=== PATIENT | female | born 1955 | race Caucasian/White ===

== ENCOUNTER 2016-11-02 14:24 | Inpatient (IN) | payer BC ==
[~2016-11-02] VITALS: Ht 154.9 cm; Wt 84.7 kg
[2016-11-02] MEDS ORDERED: OMEP20TA PO (15:14)
[2016-11-02] MEDS ORDERED: [UNRECOGNIZED DRUG - CODE] PO (15:14)
[2016-11-02] MEDS ORDERED: LEVO137T2 PO (15:14)
[2016-11-02] MEDS ORDERED: SUCR1TAB PO (15:14)
[2016-11-02] MEDS ORDERED: MULT1TAB84 PO (15:14)
[2016-11-02] MEDS ORDERED: HYDR25TA5 PO (15:14)
[2016-11-02] MEDS ORDERED: VALA1TAB PO (15:14)
[2016-11-02] MEDS ORDERED: VESI10TA PO (15:14)
[2016-11-02] MEDS ORDERED: PYRI100T PO (15:14)
[2016-11-02] MEDS ORDERED: BIOT50005 PO (15:14)
[2016-11-02] MEDS ORDERED: E 101000 PO (15:14)
[2016-11-02] MEDS ORDERED: MONT10TA4 PO (15:14)
[2016-11-02] MEDS ORDERED: MOME1SPR2 EACH NARE (15:14)
[2016-11-02] MEDS ORDERED: CALTCHW4 CHEW (15:14)
[2016-11-02] MEDS ORDERED: FLAX1300 PO (15:14)
[2016-11-02] MEDS ORDERED: [UNRECOGNIZED DRUG - CODE] PO (15:14)
[2016-11-02] MEDS ORDERED: ASPI1TAB69 PO (15:14)
[2016-11-02] MEDS ORDERED: GLUC100017 PO (15:14)
[2016-11-02] MEDS ORDERED: IBUP800T23 PO (15:14)
[2016-11-02] MEDS ORDERED: LISI10TA3 PO (15:14)
[2016-11-03] MEDS ORDERED: SODIUM CHLORID 0.9% 500 ML IV SCH (10:15)
[2016-11-03] MEDS: POVIDONE IODINE 7.5% SCRUB 118 ML BOTTLE TOP SCH (10:15)
[2016-11-03] MEDS ORDERED: TRANEXAMIC ACID IV SCH ×2 (10:15→14:45)
[2016-11-03] MEDS ORDERED: ROPIVACAINE PERI-ARTICULAR INJECTION. PERIART SCH ×5 (10:15)
[2016-11-03] MEDS ORDERED: INSULIN HUMAN REGULAR 1,000 UNITS/10 ML VIAL SQ PRN (10:15)
[2016-11-03] MEDS ORDERED: ceFAZolin 2 GM PREMIX 50 ML IV SCH (10:15)
[2016-11-03] MEDS ORDERED: VANCOMYCIN 1000 MG/NS 250 ML (for <70 kg) IV SCH ×2 (10:15)
[2016-11-03] MEDS ORDERED: LACTATED RINGER'S 1000 ML IV SCH (10:15)
[2016-11-03] MEDS ORDERED: METOPROLOL TARTRATE 25 MG TAB PO PRN (10:15)
[2016-11-03] MEDS ORDERED: DEXAMETHASONE SOD PHOS 20 MG/5 ML VIAL IV SCH (10:15)
[2016-11-03] MEDS ORDERED: SODIUM CHLORIDE 0.9% IV SCH ×2 (10:15→14:45)
[2016-11-03 10:36] VITALS: BP 135/69; PULSE 62; RESP 16; TEMP 98.6; O2SAT 97
[2016-11-03] MEDS ORDERED: GENTAMICIN SULFATE 80 MG/2 ML VIAL ONE (10:59)
[2016-11-03] MEDS ORDERED: MIDAZOLAM HCL 5 MG/5 ML VIAL ONE (11:23)
[2016-11-03] MEDS ORDERED: METOCLOPRAMIDE HCL 10 MG/2 ML VIAL ONE (11:24)
[2016-11-03] MEDS ORDERED: FAMOTIDINE 20 MG/2 ML VIAL ONE (11:24)
[2016-11-03] MEDS ORDERED: BUPIVACAINE LIPOSOME PF 1.3% 20 ML VIAL ONE (11:42)
[2016-11-03] MEDS ORDERED: fentaNYL CITRATE 250 MCG/5 ML AMP ONE (12:20)
[2016-11-03] MEDS ORDERED: ACETAMINOPHEN 1000 MG/100 ML VIAL IV ONE (12:20)
[2016-11-03] MEDS ORDERED: LACTATED RINGER'S 1000 ML INJ 1,000 ML IV ONE (13:34)
[2016-11-03] MEDS ORDERED: PHENYLEPH/NS 1000 MCG/10 ML SYR IV ONE (13:34)
[2016-11-03] MEDS ORDERED: NEOSTIGMINE 3 MG/3 ML SYR IV ONE (13:34)
[2016-11-03] MEDS ORDERED: ONDANSETRON HCL 4 MG/2 ML VIAL IV PUSH ONE (13:34)
[2016-11-03] MEDS ORDERED: PROPOFOL 200 MG/20 ML AMP IV ONE (13:34)
[2016-11-03] MEDS ORDERED: ePHEDrine/NS 25 MG/5 ML SYR IV ONE (13:34)
[2016-11-03] MEDS ORDERED: valACYclovir HCL 500 MG TAB PO PRN (14:30)
--- NOTE | 2016-11-03 14:34 | PD.OP ---
cc: Massimo Sosa MD Operative Report Date of Surgery: Nov 03, 2016 Preoperative Diagnosis: Right knee severe osteoarthritis Postoperative Diagnosis: Same Procedure: Right total knee arthroplasty Anesthesia: Adductor canal block and general Surgeon: Massimo Sosa Linux Kernel Developer(s): MILO Cabral The surgical procedure was assisted by my Advanced Registered Nurse Practitioner. My FIELD SALES SPECIALIST presence was necessary throughout this case for the manipulation and positioning of the surgical extremity. My FIELD SALES SPECIALIST was assisting me throughout the duration of this procedure. The skill set of an Advance Registered Nurse Practitioner was medically necessary to complete this procedure. During the surgical case, the rn surgical was working at the back table and the Advance Registered Nurse Practitioner was directly assisting me. Operation and Findings: IMPLANTS: DePuy Attune: Patella: size 35. Femur, posterior stabilized size 4. Tibia, rotating platform size 3. Tibial insert, rotating platform, posterior stabilized size 5 mm thickness. ESTIMATED BLOOD LOSS: 150 cc TOURNIQUET TIME: 44 minutes at 250 mmHg pressure. JUSTIFICATION FOR PROCEDURE: The patient has end-stage osteoarthritis to the knee. There is an attached conservative measures pathway form in the chart that describes the nonoperative measures that were undertaken prior to consideration of surgical management. The patient understood the risks and benefits of surgical management. See my office notes for further details PROCEDURE: The patient was brought back to the operative theatre. Adequate anesthesia was obtained. The patient received intravenous vancomycin and Ancef. The lower extremity was prepped and draped in the usual sterile fashion.The leg was exsanguinated, the tourniquet was raised. A standard anterior incision was performed followed by medial parapatellar arthrotomy was performed. End-stage arthritis was identified. Osteotomy of the patella was performed. We drilled holes for the patella. We trialed the patella component. We placed an intramedullary guide into the distal femur. We ultimately resected 11 mm off of the distal femur in 5 degrees of valgus. The remnants of the ACL and PCL were resected. Osteotomy of the proximal tibia was performed, resecting 5 mm off of the medial side. This was done with 3 degrees of posterior slope using an extramedullary guide. The distal end of the guide was placed in the mid aspect of the ankle. The femur was sized, and four chamfer cuts were completed in 3 of external rotation. We then cut the central box in the distal femur to replace the PCL. We resected the remnants of the menisci and removed osteophytes off of the femur and tibia. We then trialed the knee. We punched the tibia for the keel, and then used standard technique to cement in components. Excess cement was removed. We trialed the knee again and the final polyethylene thickness was chosen to provide extension to 0 degrees, and flexion of 140 degrees to gravity. The ligaments were appropriately balanced. Lateral release was not necessary to obtain excellent patellofemoral tracking. The tourniquet was released and adequate hemostasis was obtained. An intra- articular injection of a ropivacaine cocktail was injected. The posterior knee was inspected for excess cement, which was removed. The final polyethylene was put into position after thorough irrigation. We then closed deep fascia with a #2 Stratafix followed by skin with 2-0 Vicryl followed by magnus. Postop plan is to weight-bear as tolerated. DVT prophylaxis will be performed with Eve, BERNADETTE mendez, early mobilization, and Lovenox followed by aspirin. Massimo Sosa MD Nov 03, 2016 14:34
[2016-11-03] MEDS ORDERED: ASPI325T PO (14:36)
[2016-11-03] MEDS ORDERED: ENOX40P SQ (14:36)
[2016-11-03] MEDS ORDERED: NORC5TAB PO (14:36)
[2016-11-03] MEDS ORDERED: BISACODYL 10 MG SUPP PR PRN (14:45)
[2016-11-03] MEDS ORDERED: SODIUM CHLORIDE 0.9% FLUSH 5 ML FLUSH IVF PRN (14:45)
[2016-11-03] MEDS ORDERED: Post-op Orders (for Pharmacy) MISC XX ONE (14:45)
[2016-11-03] MEDS ORDERED: diphenhydrAMINE HCL 50 MG/ML VIAL IV PRN (14:45)
[2016-11-03] MEDS ORDERED: MORPHINE SULFATE 4 MG/ML INJ IV PUSH PRN (14:45)
[2016-11-03] MEDS ORDERED: ALUMINUM/MAGNESIUM/SIMETH 30 ML CUP PO PRN (14:45)
[2016-11-03] MEDS ORDERED: NALOXONE HCL 0.4 MG/ML AMP IV PRN (14:45)
[2016-11-03] MEDS ORDERED: MAGNESIUM HYDROXIDE SUSP 30 ML CUP PO PRN (14:45)
[2016-11-03] MEDS ORDERED: ONDANSETRON HCL 4 MG/2 ML VIAL IVP PRN (14:45)
[2016-11-03] MEDS ORDERED: *morphine SULFATE 8 MG/ML PERIprocedure ONLY ONE ×4 (15:25→18:49)
[2016-11-03] MEDS ORDERED: DO NOT ADM ANY ANTICOAGULANT DRUGS XX PRN (15:30)
[2016-11-03] MEDS: SODIUM CHLOR 0.9% 1000 ML INJ 1,000 ML IV SCH (16:00)
--- NOTE | 2016-11-03 16:02 | RADRPT ---
EXAM DATE/TIME: 11/03/2016 15:19 [facility] COMPARISON: No previous studies available for comparison. INDICATIONS : Post right knee arthroplasty MEDICAL HISTORY : None. SURGICAL HISTORY : None. ENCOUNTER: Initial ACUITY: 1 day PAIN SCORE: Non-responsive. LOCATION: Right knee. FINDINGS: Two view examination of the right knee demonstrates no evidence of fracture or dislocation. Right kne e arthroplasty. Surgical changes. No hardware loosening. CONCLUSION: Right knee arthroplasty. Rafael Prieto MD on November 03, 2016 at 16:00 Board Certified Radiologist. This report was verified electronically.
--- NOTE | 2016-11-03 16:40 | PD.CONS ---
HPI Service [facility] Consult Requested By Orthopedic surgery Reason for Consult Medical management Primary Care Physician No Primary Care Physician Diagnoses: History of Present Illness 61-year-old female with a history of hypertension, hypothyroidism, right severe knee OA who despite medical management as well as intramuscular injection continue to have severe right knee pain affecting her daily living of activity was taken to the OR and underwent today Right total knee arthroplasty. Patient was seen in PACU, denies any chest pain or shortness of breath. Vitals stable and alert and oriented 3 Review of Systems Other 12 systems reviewed and are negative except for the ones mentioned in history of present illness Past Family Social History Allergies: Coded Allergies: No Known Allergies (Unverified , 11/03/16) Past Medical History Hypertension Hypothyroidism Severe right OA Past Surgical History Right total knee arthroplasty 11/03/16 C-sections Appendectomy Reported Medications See EMR Family History Noncontributory Social History Patient denies tobacco, alcohol or illicit drug intake Physical Exam Vital Signs Vital Signs Date Time Temp Pulse Resp B/P Pulse Ox O2 Delivery O2 Flow Rate FiO2 11/03/16 15:45 56 15 119/65 95 Nasal Cannula 3 11/03/16 15:30 59 16 118/64 95 Nasal Cannula 3 11/03/16 15:15 63 16 127/68 96 Nasal Cannula 3 11/03/16 15:00 72 14 133/67 97 Nasal Cannula 3 11/03/16 14:47 98.4 70 14 124/67 95 Nasal Cannula 3 11/03/16 10:36 98.6 62 16 135/69 97 Physical Exam GENERAL: This is a well-nourished, well-developed patient, in no apparent distress. SKIN: No rashes, ecchymoses or lesions. Cool and dry. HEAD: Atraumatic. Normocephalic. No temporal or scalp tenderness. EYES: Pupils equal round and reactive. Extraocular motions intact. No scleral icterus. No injection or drainage. ENT: Nose without bleeding, purulent drainage or septal hematoma. Throat without erythema, tonsillar hypertrophy or exudate. Uvula midline. Airway patent. NECK: Trachea midline. No JVD or lymphadenopathy. Supple, nontender, no meningeal signs. CARDIOVASCULAR: Regular rate and rhythm without murmurs, gallops, or rubs. RESPIRATORY: Clear to auscultation. Breath sounds equal bilaterally. No wheezes , rales, or rhonchi. GASTROINTESTINAL: Abdomen soft, non-tender, nondistended. No hepato-splenomegaly , or palpable masses. No guarding. MUSCULOSKELETAL: Extremities without clubbing, cyanosis, or edema. Right knee repair, dressing in place, incision clean dry and intact-neurovascular intact NEUROLOGICAL: Awake and alert. Cranial nerves II through XII intact. Motor and sensory grossly within normal limits. Five out of 5 muscle strength in all muscle groups. Normal speech. Laboratory Laboratory Tests Test 11/03/16 10:34 Blood Type A POSITIVE Antibody Screen NEGATIVE Blood Bank Comment Imaging Last Impressions Knee X-Ray 11/03/16 1431 Signed Impressions: Service Date/Time: Thursday, November 03, 2016 15:19 - CONCLUSION: Right knee arthroplasty. Rafael Prieto MD Assessment and Plan Assessment and Plan 61-year-old female with status post Right total knee arthroplasty 11/03/16: Management per orthopedic surgery, continue current postop care with IV antibiotics, pain management. PT consult to treat and eval. Lovenox for DVT prophylaxis Hypertension: Continue with lisinopril, Vasotec when necessary Hypothyroidism: Resume Synthroid Other chronic medical conditions: Resume outpatient medications DVT prophylaxis: Lovenox Thank you for this consultation Code Status Full code Discussed Condition With Patient Rafael Francois MD Nov 03, 2016 16:40
[2016-11-03] MEDS ORDERED: ENALAPRILAT 1.25 MG/ML VIAL IV PUSH PRN (16:45)
[2016-11-03] MEDS ORDERED: RESP: ALBUTEROL 2.5 MG/IPRATROPIUM 0.5 MG NEB (PRN) NEB (16:45)
[2016-11-03] MEDS ORDERED: ZOLPIDEM TARTRATE 5 MG TAB PO PRN (21:00)
[2016-11-03] MEDS: SODIUM CHLORIDE 0.9% FLUSH 5 ML FLUSH IVF SCH (21:00)
[2016-11-03] MEDS ORDERED: MORPHINE SULFATE 4 MG/ML INJ ONE (22:26)
[2016-11-04] MEDS: SODIUM CHLOR 0.9% 1000 ML INJ 1,000 ML IV SCH ×2 (00:03→10:31)
[2016-11-04 00:28] VITALS: BP 126/60; PULSE 59; RESP 18; TEMP 96.1; O2SAT 96
[2016-11-04] MEDS: ACETAMINOPHEN/HYDROcodone 325 MG/5 MG TAB PO PRN ×4 (00:47→13:17)
[2016-11-04 03:30] VITALS: BP 101/54; PULSE 54; RESP 17; TEMP 97.2; O2SAT 97
[2016-11-04] MEDS ORDERED: LEVOTHYROXINE SODIUM 25 MCG TAB PO SCH (06:00)
[2016-11-04] MEDS ORDERED: LEVOTHYROXINE SODIUM 112 MCG TAB PO SCH (06:00)
[2016-11-04 06:56] LABS: HEMATOCRIT 31.6 % (35.0-46.0); MEAN CELL VOLUME 94.1 FL (80.0-100.0); MEAN CORPUSCULAR HEMOGLOBIN 31.1 PG (27.0-34.0); PLATELET COUNT 260 TH/MM3 (150-450); RED BLOOD COUNT 3.36 MIL/MM3 (4.00-5.30); REVIEW FLAG FINAL; WHITE BLOOD COUNT 13.6 TH/MM3 (4.0-11.0)
--- NOTE | 2016-11-04 06:56 | HHI.DCPOC ---
Discharge Care Plan Diagnosis: (1) Primary localized osteoarthrosis, lower leg (2) Status post total knee replacement, right Your Health Problems Are: Difficulty with ADL Goals to Promote Your Health * To prevent worsening of your condition and complications * To maintain your health at the optimal level Directions to Meet Your Goals Take your medications as prescribed Follow your dietary instruction Follow activity as directed Keep your appointments as scheduled Take your immunizations and boosters as scheduled If your symptoms worsen call your PCP, if no PCP go to Urgent Care Center or Emergency Room Smoking is Dangerous to Your Health. Avoid second hand smoke Call the 24-hour hour crisis hotline for domestic abuse at Fly Lice[place] Nov 04, 2016 06:56
--- NOTE | 2016-11-04 06:57 | HHI.FF ---
Face to Face Verification Diagnosis: (1) Primary localized osteoarthrosis, lower leg (2) Status post total knee replacement, right Physical Therapy Gait training, Transfer training, bed to chair Right LE Weight Bearing: WB as tolerated Right LE Range of Motion: Active ROM Nursing Nursing: Chuckie teaching, Dressing changes Dressing Changes: Daily dressing change I have seen patient Kathleen Lea on 11/04/16. My clinical findings support the need for the requested home health care services because: Limited ability to care for self High risk of falls I certify that my clinical findings support that this patient is homebound because: Post-op weakness Unsteady gait/balance Fly Licea Nov 04, 2016 06:57
[2016-11-04] MEDS ORDERED: CPMMACHINE (06:59)
[2016-11-04] MEDS ORDERED: COMMODE 3-IN-11 MIS (06:59)
[2016-11-04] MEDS ORDERED: WALKER WHEELS/F1 MIS (06:59)
[2016-11-04 07:36] LABS: POTASSIUM 4.2 MEQ/L (3.5-5.1)
[2016-11-04] MEDS ORDERED: DEXAMETHASONE SOD PHOS 20 MG/5 ML VIAL IV ONE (07:45)
[2016-11-04 08:00] VITALS: BP 107/56; PULSE 53; RESP 18; TEMP 98; O2SAT 94
[2016-11-04] MEDS: SODIUM CHLORIDE 0.9% FLUSH 5 ML FLUSH IVF SCH (08:41)
[2016-11-04] MEDS ORDERED: MONTELUKAST SODIUM 10 MG TAB PO SCH (09:00)
[2016-11-04] MEDS ORDERED: PANTOPRAZOLE SOD 20 MG DELAYED RELEASE TAB PO SCH (09:00)
[2016-11-04] MEDS ORDERED: LISINOPRIL 10 MG TAB PO SCH (09:00)
[2016-11-04] MEDS ORDERED: TOLTERODINE TARTRATE 4 MG CAP LA PO SCH (09:00)
[2016-11-04] MEDS ORDERED: HYDROCHLOROTHIAZIDE 25 MG TAB PO SCH (09:00)
[2016-11-04] MEDS ORDERED: FLUTICASONE PROPIONATE 50 MCG/ACT 16 GM NASAL SPRAY EACH NARE SCH (09:00)
[2016-11-04] MEDS ORDERED: MAGNESIUM HYDROXIDE SUSP 30 ML CUP PO ONE (09:30)
[2016-11-04] MEDS: POVIDONE IODINE 7.5% SCRUB 118 ML BOTTLE TOP SCH (09:48)
[2016-11-04 11:35] VITALS: BP 115/63; PULSE 52; RESP 18; TEMP 96.9; O2SAT 93
--- NOTE | 2016-11-04 12:23 | HHI.PR ---
Subjective Remarks Patient seen and examined She's been up and ambulated with assistance with PT, denies any pain to left knee. Afebrile Would like to be discharged home with home health care today if possible Objective Vitals Vital Signs Date Time Temp Pulse Resp B/P Pulse Ox O2 Delivery O2 Flow Rate FiO2 11/04/16 11:35 96.9 52 18 115/63 93 11/04/16 08:00 98.0 53 18 107/56 94 11/04/16 07:45 Room Air 11/04/16 03:30 97.2 54 17 101/54 97 11/04/16 00:47 96 Nasal Cannula 2.00 11/04/16 00:28 96.1 59 18 126/60 96 11/04/16 00:00 98.3 61 16 107/60 97 Nasal Cannula 3 11/03/16 22:00 62 15 121/70 97 Nasal Cannula 3 11/03/16 20:00 98.1 67 16 108/58 95 Nasal Cannula 3 11/03/16 19:00 97.8 78 17 120/56 95 Nasal Cannula 3 11/03/16 18:15 57 15 108/56 98 Nasal Cannula 3 11/03/16 17:45 82 15 121/67 98 Nasal Cannula 3 11/03/16 17:15 82 15 126/75 98 Nasal Cannula 3 11/03/16 16:45 82 15 115/66 99 Nasal Cannula 3 11/03/16 16:15 59 15 117/66 97 Nasal Cannula 3 11/03/16 15:45 56 15 119/65 95 Nasal Cannula 3 11/03/16 15:30 59 16 118/64 95 Nasal Cannula 3 11/03/16 15:15 63 16 127/68 96 Nasal Cannula 3 11/03/16 15:00 72 14 133/67 97 Nasal Cannula 3 11/03/16 14:47 98.4 70 14 124/67 95 Nasal Cannula 3 I/O 11/03/16 11/03/16 11/03/16 11/04/16 11/04/16 11/04/16 07:00 15:00 23:00 07:00 15:00 23:00 Intake Total 1600 ml 1100 ml 977 ml Output Total 400 ml 400 ml 750 ml Balance 1200 ml 700 ml 227 ml Intake Oral 480 ml IV Total 1100 ml 497 ml Other 1600 ml Output Urine Total 300 ml 400 ml 750 ml Estimated Blood Loss 100 ml 0 ml # Voids 1 # Bowel Movements 0 Result Diagram: 11/04/16 0610 11/04/16 0610 Imaging Last Impressions Knee X-Ray 11/03/16 1431 Signed Impressions: Service Date/Time: Thursday, November 03, 2016 15:19 - CONCLUSION: Right knee arthroplasty. Rafael Prieto MD Objective Remarks GENERAL: NAD SKIN: Warm and dry. HEAD: Normocephalic. EYES: No scleral icterus. No injection or drainage. NECK: Supple, trachea midline. No JVD or lymphadenopathy. CARDIOVASCULAR: Regular rate and rhythm without murmurs, gallops, or rubs. RESPIRATORY: Breath sounds equal bilaterally. No accessory muscle use. GASTROINTESTINAL: Abdomen soft, non-tender, nondistended. MUSCULOSKELETAL: No cyanosis, or edema. Left knee repair and dressing in place- neurovascular intact BACK: Nontender without obvious deformity. No CVA tenderness. A/P Assessment and Plan 61-year-old female with status post Right total knee arthroplasty 11/03/16: Management per orthopedic surgery, continue current postop care with pain management. PT to treat and eval. Lovenox for DVT prophylaxis Hypertension: Continue with lisinopril, Vasotec when necessary Hypothyroidism: Continue Synthroid Other chronic medical conditions: Continue outpatient medications DVT prophylaxis: Rafael Schmidt MD Nov 04, 2016 12:23
--- NOTE | 2016-11-04 12:49 | PD.ORT.PN ---
Subjective Post Op Day #: 1 Subjective Remarks Patient is resting comfortably in bed with minimal pain. Friend at bedside. Patient has been ambulatory and is voiding. Patient is eager for discharge home today. Objective Vitals Vital Signs Date Time Temp Pulse Resp B/P Pulse Ox O2 Delivery O2 Flow Rate FiO2 11/04/16 11:35 96.9 52 18 115/63 93 11/04/16 08:00 98.0 53 18 107/56 94 11/04/16 07:45 Room Air 11/04/16 03:30 97.2 54 17 101/54 97 11/04/16 00:47 96 Nasal Cannula 2.00 11/04/16 00:28 96.1 59 18 126/60 96 11/04/16 00:00 98.3 61 16 107/60 97 Nasal Cannula 3 11/03/16 22:00 62 15 121/70 97 Nasal Cannula 3 11/03/16 20:00 98.1 67 16 108/58 95 Nasal Cannula 3 11/03/16 19:00 97.8 78 17 120/56 95 Nasal Cannula 3 11/03/16 18:15 57 15 108/56 98 Nasal Cannula 3 11/03/16 17:45 82 15 121/67 98 Nasal Cannula 3 11/03/16 17:15 82 15 126/75 98 Nasal Cannula 3 11/03/16 16:45 82 15 115/66 99 Nasal Cannula 3 11/03/16 16:15 59 15 117/66 97 Nasal Cannula 3 11/03/16 15:45 56 15 119/65 95 Nasal Cannula 3 11/03/16 15:30 59 16 118/64 95 Nasal Cannula 3 11/03/16 15:15 63 16 127/68 96 Nasal Cannula 3 11/03/16 15:00 72 14 133/67 97 Nasal Cannula 3 11/03/16 14:47 98.4 70 14 124/67 95 Nasal Cannula 3 I/O 11/03/16 11/03/16 11/03/16 11/04/16 11/04/16 11/04/16 07:00 15:00 23:00 07:00 15:00 23:00 Intake Total 1600 ml 1100 ml 977 ml Output Total 400 ml 400 ml 750 ml Balance 1200 ml 700 ml 227 ml Intake Oral 480 ml IV Total 1100 ml 497 ml Other 1600 ml Output Urine Total 300 ml 400 ml 750 ml Estimated Blood Loss 100 ml 0 ml # Voids 1 # Bowel Movements 0 Result Diagram: 11/04/16 0610 11/04/16 0610 Imaging Last 24 hours Impressions Knee X-Ray 11/03/16 1431 Signed Impressions: Service Date/Time: Thursday, November 03, 2016 15:19 - CONCLUSION: Right knee arthroplasty. Rafael Prieto MD Procedures Right TKA Objective Remarks The patient's dressings were changed today with no drainage. Incisions are well approximated with surgical clips intact. No redness or s/s of infection. EHL/TA/G intact. 2+ pedal pulse. No calf swelling or tenderness. Minimal lower extremity swelling. + SILT. Assessment & Plan Ortho Post Op Day #: 1 Problem List: Assessment and Plan POD #1: Right TKA 1. WBAT RLE 2. Lovenox for DVT prophylaxis 3. Ice to the right knee PRN 4. Stable for discharge home with home health today. Fly Licea Nov 04, 2016 12:49
[2016-11-04] MEDS ORDERED: ENOXAPARIN SODIUM 40 MG/0.4 ML SYRINGE SQ SCH (13:43)
[2016-11-04] MEDS ORDERED: DOCUSATE SODIUM 100 MG CAP PO SCH (21:00)
[2016-11-04] MEDS ORDERED: MAGNESIUM HYDROXIDE SUSP 30 ML CUP PO SCH (21:00)
[2016-11-04] MEDS ORDERED: SENNOSIDES 8.6 MG TAB PO SCH (21:00)
[2016-11-04] MEDS ORDERED: MULTIVITAMINS/MINERALS THERAPEUTIC TAB PO SCH (21:00)
--- NOTE | 2016-11-08 17:31 | HHI.DS ---
Discharge Summary Admission Date Nov 03, 2016 at 09:31 Discharge Date: Nov 04, 2016 Admitting Diagnosis Primary localized OA, lower leg Status post total knee replacement, right Diagnosis: (1) Primary localized osteoarthrosis, lower leg Diagnosis: Principal (2) Status post total knee replacement, right Diagnosis: Principal Procedures Right TKA Brief History This is a 61 year old female patient with severe OA of the right knee CBC/BMP: 11/04/16 0610 11/04/16 0610 PE at Discharge The patient's dressings were changed today with no drainage. Incisions are well approximated with surgical clips intact. No redness or s/s of infection. EHL/TA/G intact. 2+ pedal pulse. No calf swelling or tenderness. Minimal lower extremity swelling. + SILT. Hospital Course The patient was admitted to the hospital for severe OA of the right knee to have a right TKA. The patient's surgery went well with no complications. The patient had a normal hospital stay and was discharged home with home health. The patient is WBAT on the RLE. The patient's incision is well approximated with surgical clips intact. The patient will f/u with Dr. Sosa in 10 days in the office. Pt Condition on Discharge: Stable Discharge Disposition: Disch w/ Home Health Serv Discharge Instructions Diet Instructions: As Tolerated, No Restrictions Activities You Can Perform: Weight Bearing as Keila Activities to Avoid: Strenuous Activity Follow up Referrals: Orthopedics with Massimo Sosa MD New Medications: Aspirin (Aspirin) 325 Mg Tab 325 MG PO DAILY Start Aspirin after Lovenox is completed. Prevent Blood Clot # 30 Ref 0 TAB Commode 3-in-1 (Commode 3-in-1) 1 Mis Mis 1 EA .ROUTE DIRECTED #1 Ref 0 EA CPM-Continuous Passive Motion Machine (CPM-Continuous Passive Motion Machine) 1 Ea Device 1 EA .ROUTE DIRECTED #1 Ref 0 EA Enoxaparin Inj (Lovenox Inj) 40 Mg/0.4 Ml Syr 40 MG SQ DAILY Start Aspirin after Lovenox is completed. Blood Clot Prevention # 10 Ref 0 SYRINGE Hydrocodone-Acetaminophen ([place]) 5-325 mg Tab 1-2 TAB PO Q4H PRN PAIN #60 Ref 0 TAB Walker with Front Wheels (Walker with Front Wheels) 1 Mis Mis 1 EA .ROUTE DIRECTED #1 Ref 0 EA Continued Medications: Ascorbic Acid (C 1000) 1,000 Mg Tab 1000 MG PO DAILY Beta Carotene (Beta Carotene) 25,000 Unit Cap 15012 UNITS PO DAILY Nutritional Supplement #1 Ref 0 BOTTLE Biotin (Biotin) 5,000 Mcg Cap 5000 MCG PO #1 BOTTLE Calcium Carbonate-Cholecalciferol (Caltrate 600+D Soft Chews) 600-800 Mg-Unit Chew 1 TAB CHEW TAB Flaxseed (Linseed) (Flax Seed Oil 1300 mg) 1 Cap Cap 1300 MG PO DAILY Glucosamine (Glucosamine) 1,000 Mg Cap 2000 MG PO DAILY Herbal Supplements Ref 0 CAP Hydrochlorothiazide (Hydrochlorothiazide) 25 Mg Tab 25 MG PO DAILY #30 Ref 0 TAB Levothyroxine (Levothyroxine) 137 Mcg Tab 137 MCG PO DAILY Thyroid #30 Ref 0 TAB Lisinopril (Lisinopril) 10 Mg Tab 10 MG PO DAILY #30 Ref 0 TAB Mometasone Nasal [place] (Mometasone Nasal [place]) 50 Mcg/Act [place] 2 SPRAY EACH NARE DAILY Allergy Management #1 Ref 0 BOTTLE Montelukast (Montelukast) 10 Mg Tab 10 MG PO DAILY #30 Ref 0 TAB Multiple Vitamins W/ Minerals (Multivitamin Adults) 1 Tab 1 TAB PO DAILY Nutritional Supplement Ref 0 TAB Omeprazole (Omeprazole) 20 Mg Tab 20 MG PO DAILY #30 Ref 0 TAB Pyridoxine (Vitamin B-6) 100 Mg Tab 100 MG PO DAILY Nutritional Supplement #30 Ref 0 TAB Solifenacin (Vesicare) 10 Mg Tab 10 MG PO DAILY Urinary Symptom Managemen #30 Ref 0 TAB Sucralfate (Sucralfate) 1 Gm Tab 1 GM PO TID on empty stomach PRN REFLUX #90 Ref 0 TAB Valacyclovir (Valacyclovir) 1 Gm Tab 1000 MG PO DAILY PRN RASH #30 Ref 0 TAB Discontinued Medications: Aspirin (Aspirin) 81 Mg Tabdr 81 MG PO DAILY TAB Ibuprofen (Ibuprofen) 800 Mg Tab 800 MG PO Q8H PRN PAIN SCALE 1 TO 10 Ref 0 TAB Vitamin E (E 1000) 1,000 Unit Cap 1000 MG PO DAILY Fly Licea Nov 08, 2016 17:31
== END 2016-11-04 15:23 | disposition home health service (06) | DRG 470 ==
LOC: HSDI 11-03 09:31 → N06B 11-04 00:30
PROVIDERS: ADMIT Orthopaedic Surgery; ATTEND Orthopaedic Surgery
PROC: 3E0T3CZ (ICD-10-PCS; 2016-11-03)
PROC: 0SRC0J9 Replacement of Right Knee Joint with Synthetic Substitute, Cemented, Open Approach (ICD-10-PCS; principal; 2016-11-03 12:33)
DX: M17.11 Unilateral primary osteoarthritis, right knee (principal); I10 Essential (primary) hypertension; E03.9 Hypothyroidism, unspecified
CPT/HCPCS: 73560; 80048; 85027; 86850; 86900; 86901; 94150; C1776; C9290; J0131; J0171; J0690; J0735; J1100; J1580; J1650; J1885; J2250; J2270; J2370; J2405; J2710; J2765; J2795; J3010; J3370; J7030; J7050; J7120; L1830

== ENCOUNTER → 2017-10-17 | Outpatient (CLI) | payer BC ==
[~2017-10-17] MED LIST: ASPI-183 PO; ASPI81TA23 PO; BIOT50005 PO; CALTCHW4 CHEW; COMMODE 3-IN-11 MIS; CPMMACHINE; DULO1CAP3 PO; ENOX40P SQ; FLAX1300 PO; GLUC100013 PO; HYDR25TA5 PO; IBUP1TAB7 PO; LEVO137T2 PO; LISI10TA3 PO; MOBI15TA PO; MOME1SPR2 EACH NARE; MONT10TA4 PO; MULT1TAB84 PO; NORC5TAB PO; OMEP20TA93 PO; PYRI100T PO; SUCR1TAB PO; VALA1TAB PO; VALT1TAB PO; VESI10TA2 PO; WALKER WHEELS/F1 MIS; [UNRECOGNIZED DRUG - CODE] PO; [UNRECOGNIZED DRUG - CODE] PO
== END ==
LOC: CPRE 12:36
PROVIDERS: ATTEND Orthopaedic Surgery
DX: M17.12 Unilateral primary osteoarthritis, left knee (principal)

== ENCOUNTER 2017-10-19 08:18 | Inpatient (IN) | payer BC ==
[~2017-10-19] VITALS: Ht 154.9 cm; Wt 91.2 kg
[~2017-10-19 08:18] MED LIST changes: -ASPI-183 PO; -BIOT50005 PO; -CALTCHW4 CHEW; -COMMODE 3-IN-11 MIS; -CPMMACHINE; -ENOX40P SQ; -FLAX1300 PO; -IBUP1TAB7 PO; -MULT1TAB84 PO; -NORC5TAB PO; -PYRI100T PO; -VALA1TAB PO; -VALT1TAB PO; -WALKER WHEELS/F1 MIS; -[UNRECOGNIZED DRUG - CODE] PO; -[UNRECOGNIZED DRUG - CODE] PO
[2017-10-19] MEDS ORDERED: LACTATED RINGER'S 1000 ML IV PRN (08:45)
[2017-10-19] MEDS ORDERED: CHLORHEXIDINE GLUCONATE 2 % 1 PACK (2 CLOTHS) TOPICAL PRN (08:45)
[2017-10-19] MEDS ORDERED: SODIUM CHLORID 0.9% 500 ML IV PRN (08:45)
[2017-10-19] MEDS ORDERED: METOPROLOL TARTRATE 25 MG TAB PO PRN (08:45)
[2017-10-19] MEDS ORDERED: POVIDONE IODINE 5% (ANTISEPSIS KIT) 4 APPLICATIONS EACH NARE PRN (08:45)
[2017-10-19] MEDS ORDERED: ceFAZolin 2 GM PREMIX 50 ML IV SCH (08:45)
[2017-10-19] MEDS ORDERED: GENTAMICIN SULFATE 80 MG/2 ML VIAL ONE (08:59)
[2017-10-19] MEDS ORDERED: VANCOMYCIN 1 GM/200 ML PREMIX ON-CALL IV SCH (09:00)
[2017-10-19] MEDS ORDERED: ROPIVACAINE PERI-ARTICULAR INJECTION. P-ARTICULR SCH ×5 (09:00)
[2017-10-19] MEDS ORDERED: DEXAMETHASONE SOD PHOS 20 MG/5 ML VIAL IV SCH (09:00)
[2017-10-19] MEDS ORDERED: POVIDONE IODINE 7.5% SCRUB 118 ML BOTTLE TOPICAL SCH (09:00)
[2017-10-19] MEDS ORDERED: LIDOCAINE HCL 1% PF 5 ML AMPULE ONE (09:11)
[2017-10-19] MEDS ORDERED: IBUP1TAB7 PO (09:18)
[2017-10-19] MEDS ORDERED: VALT1TAB PO (09:18)
[2017-10-19] MEDS ORDERED: MIDAZOLAM HCL 5 MG/5 ML VIAL ONE (09:20)
[2017-10-19] MEDS ORDERED: ACETAMINOPHEN 1000 MG/100 ML 100 ML IV ONE (09:21)
[2017-10-19] MEDS ORDERED: PROPOFOL 500 MG/50 ML INJ 0 ML ONE (09:21)
[2017-10-19] MEDS ORDERED: FAMOTIDINE 20 MG/2 ML VIAL ONE (09:21)
[2017-10-19] MEDS ORDERED: MIDAZOLAM HCL 5 MG/ML VIAL (1 ML) IV ONE (09:30)
[2017-10-19] MEDS ORDERED: TRANEXAMIC ACID IV SCH ×2 (10:00→13:00)
[2017-10-19] MEDS ORDERED: SODIUM CHLORIDE 0.9% IV SCH ×2 (10:00→13:00)
--- NOTE | 2017-10-19 11:26 | PD.OP ---
cc: Massimo Sosa MD Operative Report Date of Surgery: Oct 19, 2017 Preoperative Diagnosis: Left knee severe osteoarthritis Postoperative Diagnosis: Same Procedure: Left total knee arthroplasty Anesthesia: Adductor canal block and general Surgeon: Massimo Sosa Automotive Assembler(s): MILO Cabral The surgical procedure was assisted by my Advanced Registered Nurse Practitioner. My SPOUT LINER HELPER presence was necessary throughout this case for the manipulation and positioning of the surgical extremity. My SPOUT LINER HELPER was assisting me throughout the duration of this procedure. The skill set of an Advance Registered Nurse Practitioner was medically necessary to complete this procedure. During the surgical case, the surgical technology instructor was working at the back table and the Advance Registered Nurse Practitioner was directly assisting me. Operation and Findings: IMPLANTS: DePuy Attune: Patella: size 35. Femur, posterior stabilized size 4. Tibia, rotating platform size 3. Tibial insert, rotating platform, posterior stabilized size 6 mm thickness. ESTIMATED BLOOD LOSS: 100 cc TOURNIQUET TIME: 39 minutes at 250 mmHg pressure. JUSTIFICATION FOR PROCEDURE: The patient has end-stage osteoarthritis to the knee. There is an attached conservative measures pathway form in the chart that describes the nonoperative measures that were undertaken prior to consideration of surgical management. The patient understood the risks and benefits of surgical management. See my office notes for further details PROCEDURE: The patient was brought back to the operative theatre. Adequate anesthesia was obtained. The patient received intravenous Ancef and vancomycin. The lower extremity was prepped and draped in the usual sterile fashion.The leg was exsanguinated, the tourniquet was raised. A standard anterior incision was performed followed by medial parapatellar arthrotomy was performed. End-stage arthritis was identified. Osteotomy of the patella was performed. We drilled holes for the patella. We trialed the patella component. We placed an intramedullary guide into the distal femur. We ultimately resected 13 mm off of the distal femur in 5 degrees of valgus. The remnants of the ACL and PCL were resected. Osteotomy of the proximal tibia was performed, resecting 7 mm off of the medial side. This was done with 3 degrees of posterior slope using an extramedullary guide. The distal end of the guide was placed in the mid aspect of the ankle. The femur was sized, and four chamfer cuts were completed in 3 of external rotation. We then cut the central box in the distal femur to replace the PCL. We resected the remnants of the menisci and removed osteophytes off of the femur and tibia. We then trialed the knee. We punched the tibia for the keel, and then used standard technique to cement in components. Excess cement was removed. We trialed the knee again and the final polyethylene thickness was chosen to provide extension to 0 degrees, and flexion of 140 degrees to gravity. The ligaments were appropriately balanced. Lateral release was necessary to obtain excellent patellofemoral tracking. The tourniquet was released and adequate hemostasis was obtained. An intra- articular injection of a ropivacaine cocktail was injected. The posterior knee was inspected for excess cement, which was removed. The final polyethylene was put into position after thorough irrigation. We then closed deep fascia with a #2 Stratafix followed by skin with 2-0 Vicryl followed by magnus. Postop plan is to weight-bear as tolerated. DVT prophylaxis will be performed with Eve, BERNADETTE mendez, early mobilization, and Lovenox followed by aspirin. Massimo Sosa MD Oct 19, 2017 11:26
[2017-10-19] MEDS ORDERED: BISACODYL 10 MG SUPP RECTAL PRN (11:30)
[2017-10-19] MEDS ORDERED: MAGNESIUM HYDROXIDE SUSP 30 ML CUP PO PRN (11:30)
[2017-10-19] MEDS ORDERED: diphenhydrAMINE HCL 50 MG/ML VIAL IV PUSH PRN (11:30)
[2017-10-19] MEDS ORDERED: MORPHINE SULFATE 4 MG/ML INJ IV PUSH PRN (11:30)
[2017-10-19] MEDS ORDERED: ALUMINUM/MAGNESIUM/SIMETH 30 ML CUP PO PRN (11:30)
[2017-10-19] MEDS ORDERED: NALOXONE HCL 0.4 MG/ML AMP IV PUSH PRN (11:30)
[2017-10-19] MEDS ORDERED: ZOLPIDEM TARTRATE 5 MG TAB PO PRN (11:30)
--- NOTE | 2017-10-19 11:37 | EKG ---
Date Performed: 10/19/2017 Time Performed: 08:47:17 PTAGE: 62 years EKG: SINUS BRADYCARDIA BORDERLINE ECG NO PREVIOUS TRACING DOCTOR: Sekou Collins Interpretating Date/Time 10/19/2017 11:36:33
[2017-10-19] MEDS ORDERED: DO NOT ADM ANY ANTICOAGULANT DRUGS PRN (11:50)
[2017-10-19] MEDS: SODIUM CHLOR 0.9% 1000 ML INJ 1,000 ML IV SCH ×2 (12:17→19:19)
[2017-10-19] MEDS ORDERED: *MEPERIDINE 25 MG INJ VIAL PERIprocedural Use ONLY ONE (12:19)
--- NOTE | 2017-10-19 12:23 | RADRPT ---
EXAM DATE/TIME: 10/19/2017 12:04 [facility] COMPARISON: No previous studies available for comparison. INDICATIONS : Post op left total knee. MEDICAL HISTORY : None. SURGICAL HISTORY : Right total knee. ENCOUNTER: Initial ACUITY: 1 day PAIN SCORE: Non-responsive. LOCATION: Left knee. FINDINGS: AP and lateral views of the left knee following recent total knee arthroplasty demonstrate metallic h ardware at the distal femur and proximal tibia with radiolucent patellar component. There is air and fluid within the knee joint and there is soft tissue air, as expected. No unexpected radiopaque forei gn body is present. CONCLUSION: Expected changes following recent left total knee arthroplasty, as above. Chano Cavazos MD on October 19, 2017 at 12:19 Board Certified Radiologist. This report was verified electronically.
[2017-10-19] MEDS ORDERED: ACETAMINOPHEN/HYDROcodone 325 MG/5 MG TAB PO PRN (13:00)
[2017-10-19] MEDS ORDERED: ONDANSETRON HCL 4 MG/2 ML VIAL IVP PRN (13:15)
--- NOTE | 2017-10-19 13:46 | HHI.DCPOC ---
Discharge Care Plan Diagnosis: (1) Status post total knee replacement, left (2) Primary localized osteoarthrosis, lower leg Your Health Problems Are: Difficulty with ADL Goals to Promote Your Health * To prevent worsening of your condition and complications * To maintain your health at the optimal level Directions to Meet Your Goals Take your medications as prescribed Follow your dietary instruction Follow activity as directed Keep your appointments as scheduled Take your immunizations and boosters as scheduled If your symptoms worsen call your PCP, if no PCP go to Urgent Care Center or Emergency Room Smoking is Dangerous to Your Health. Avoid second hand smoke Call the 24-hour hour crisis hotline for domestic abuse at Fly Licea Oct 19, 2017 13:46
--- NOTE | 2017-10-19 13:47 | HHI.FF ---
Face to Face Verification Diagnosis: (1) Primary localized osteoarthrosis, lower leg (2) Status post total knee replacement, left Physical Therapy Gait training, Transfer training, bed to chair Knee: Total knee Left LE Weight Bearing: WB as tolerated Left LE Range of Motion: Active ROM Nursing Nursing: Chuckie martini Dressing Changes: Do not change dressing Additional Instructions First dressing change in the office I have seen patient Kathleen Lea on 10/19/17. My clinical findings support the need for the requested home health care services because: Limited ability to care for self High risk of falls I certify that my clinical findings support that this patient is homebound because: Post-op weakness Unsteady gait/balance Fly Licea Oct 19, 2017 13:47
[2017-10-19] MEDS ORDERED: WALKER WHEELS/F1 MIS (13:49)
[2017-10-19] MEDS ORDERED: COMMODE 3-IN-11 MIS (13:49)
[2017-10-19] MEDS ORDERED: CPMMACHINE (13:49)
[2017-10-19] MEDS ORDERED: Post-op Orders (for Pharmacy) XX ONE (14:00)
[2017-10-19] MEDS ORDERED: *morphine SULFATE 10 MG/ML PERIprocedure ONLY ONE (14:03)
[2017-10-19 15:45] VITALS: BP 121/68; PULSE 68; RESP 18; TEMP 97.4; O2SAT 96
[2017-10-19] MEDS ORDERED: ENALAPRILAT 1.25 MG/ML VIAL IV PUSH PRN (15:45)
[2017-10-19] MEDS: ACETAMINOPHEN/HYDROcodone 325 MG/5 MG TAB PO PRN ×2 (15:55→21:05)
--- NOTE | 2017-10-19 18:12 | PD.CONS ---
HPI Service [facility] Consult Requested By Dr. Sosa Reason for Consult Medical management Primary Care Physician Non-Staff Diagnoses: History of Present Illness The patient is a 62-year-old female with past medical history of arthritis who is presenting to the hospital for elective left knee replacement. 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 The patient was taking meloxicam and prednisone. She was referred for a special medication which she has not started yet. She also had her right knee replaced last October. She has been following up with orthopedic surgery and thought she would get her left knee replaced prior to starting the new medication for her arthritis. She was seen following surgery, which she tolerated well. She has been having bowel movements prior to coming to the hospital. She and related with physical therapy following surgery. She is anxious to go home soon. Review of Systems Except as stated in HPI: all other systems reviewed are Neg Past Family Social History Allergies: Coded Allergies: No Known Allergies (Unverified Allergy, Unknown, 10/19/17) Past Medical History Arthritis Hypertension Hyperlipidemia Allergies GERD Hypothyroidism Past Surgical History Thyroidectomy secondary to goiter Cholecystectomy Active Ordered Medications Current Medications Medications (Trade) Dose Ordered Sig/Lakhwinder Route Start Time Stop Time Status Last Admin (Lopressor) 25 mg SIGNS AND DISPLAYS SALES REPRESENTATIVE PRN PO 10/19/17 08:45 10/22/17 08:44 (Betadine 5% Antisepsis Kit) 1 applic SIGNS AND DISPLAYS SALES REPRESENTATIVE PRN EACH NARE 10/19/17 08:45 10/22/17 08:44 (Chlorhexidine 2% Cloth) 3 pack SIGNS AND DISPLAYS SALES REPRESENTATIVE PRN TOPICAL 10/19/17 08:45 10/22/17 08:44 10/19/17 08:40 (Betadine 7.5% Scrub) 1 applic SIGNS AND DISPLAYS SALES REPRESENTATIVE TOPICAL 10/19/17 09:00 10/22/17 08:59 10/19/17 08:50 Vancomycin/Sodium Chloride 200 ml @ 200 mls/hr SIGNS AND DISPLAYS SALES REPRESENTATIVE IV 10/19/17 09:00 10/22/17 08:59 10/19/17 10:00 (Decadron Inj) 10 mg SIGNS AND DISPLAYS SALES REPRESENTATIVE IV 10/19/17 09:00 10/22/17 08:59 10/19/17 09:42 (Cymbalta Dr) 60 mg DAILY PO 10/20/17 09:00 (Hydrodiuril) 25 mg EVERY OTHER DAY PO 10/21/17 09:00 (Prinivil) 10 mg DAILY PO 10/20/17 09:00 (Flonase Garry Spr) 2 spray DAILY EACH NARE 10/20/17 09:00 (Singulair) 10 mg DAILY PO 10/20/17 09:00 (Valtrex) 1,000 mg BID PO 10/19/17 21:00 (Synthroid) 112 mcg DAILY@0600 PO 10/20/17 06:00 (Protonix) 20 mg DAILY PO 10/20/17 09:00 (Detrol La) 4 mg DAILY PO 10/20/17 09:00 Sodium Chloride 1,000 ml @ 100 mls/hr Q10H IV 10/19/17 11:23 10/19/17 12:17 Cefazolin Sodium 1000 mg/Sodium Chloride 100 ml @ 200 mls/hr Q6H IV 10/19/17 16:00 10/20/17 04:29 10/19/17 15:30 (Decadron Inj) 10 mg ONCE ONCE IV 10/20/17 07:45 10/20/17 07:46 (Lovenox Inj) 40 mg Q24H SQ 10/20/17 11:00 10/29/17 11:01 ([place] 5-325 Mg) 1 tab Q4H PRN PO 10/19/17 13:00 ([place] 5-325 Mg) 2 tab Q4H PRN PO 10/19/17 13:00 10/19/17 15:55 (Theragran M Tab) 1 tab BID PO 10/20/17 21:00 12/19/17 20:59 (Zofran Inj) 4 mg Q6H PRN IVP 10/19/17 13:15 (Colace) 100 mg BID PO 10/20/17 21:00 (Mag-Al Plus Susp Liq) 30 ml Q6H PRN PO 10/19/17 11:30 (Ambien) 5 mg HS PRN PO 10/19/17 11:30 (Dulcolax Supp) 10 mg DAILY PRN RECTAL 10/19/17 11:30 (Milk Of Magnesia Liq) 30 ml DAILY PRN PO 10/19/17 11:30 (Narcan Inj) 0.4 mg UNSCH PRN IV PUSH 10/19/17 11:30 (Benadryl Inj) 25 mg Q6H PRN IV PUSH 10/19/17 11:30 (Morphine Inj) 2 mg Q3H PRN IV PUSH 10/19/17 11:30 Miscellaneous Information ALL NURSING DEPARTME... UNSCH PRN .XX 10/19/17 11:50 10/20/17 11:49 (Synthroid) 25 mcg DAILY@0600 PO 10/20/17 06:00 (Vasotec Inj) 1.25 mg Q6H PRN IV PUSH 10/19/17 15:45 Family History Arthritis CVA CAD Hyperlipidemia Social History The patient does not smoke. She has social alcohol use. She does not use illicit substances. Physical Exam Vital Signs Vital Signs Date Time Temp Pulse Resp B/P (MAP) Pulse Ox O2 Delivery O2 Flow Rate FiO2 10/19/17 15:45 97.4 68 18 121/68 (85) 96 10/19/17 15:00 97.7 64 15 110/56 (74) 98 Nasal Cannula 2 10/19/17 14:00 69 17 144/68 (93) 96 Nasal Cannula 3 10/19/17 13:00 70 18 143/68 (93) 96 Nasal Cannula 3 10/19/17 12:45 57 17 143/71 (95) 94 Nasal Cannula 3 10/19/17 12:30 59 17 133/65 (87) 94 Nasal Cannula 3 10/19/17 12:15 63 20 140/70 (93) 95 Nasal Cannula 3 10/19/17 12:00 60 21 131/69 (89) 95 Simple Mask 8 10/19/17 11:51 97.7 67 24 138/63 (88) 93 Simple Mask 8 10/19/17 09:35 64 115/69 (84) 98 10/19/17 09:29 97.5 64 18 131/73 (92) 97 10/19/17 09:27 Nasal Cannula 2 10/19/17 09:27 68 131/73 (92) 100 Physical Exam GENERAL: This is a well-nourished, well-developed patient, in no apparent distress. SKIN: No rashes, ecchymoses or lesions. Cool and dry. HEAD: Atraumatic. Normocephalic. No temporal or scalp tenderness. EYES: Pupils equal round and reactive. Extraocular motions intact. No scleral icterus. No injection or drainage. ENT: Nose without bleeding, purulent drainage or septal hematoma. Throat without erythema, tonsillar hypertrophy or exudate. Uvula midline. Airway patent. NECK: Trachea midline. No JVD or lymphadenopathy. Supple, nontender, no meningeal signs. CARDIOVASCULAR: Regular rate and rhythm without murmurs, gallops, or rubs. RESPIRATORY: Clear to auscultation. Breath sounds equal bilaterally. No wheezes , rales, or rhonchi. GASTROINTESTINAL: Abdomen soft, non-tender, nondistended. No hepato-splenomegaly , or palpable masses. No guarding. MUSCULOSKELETAL: Left knee is bandaged. There is some edema. Surgical scar on the right knee noted. NEUROLOGICAL: Awake and alert. Cranial nerves II through XII intact. Motor and sensory grossly within normal limits. Five out of 5 muscle strength in all muscle groups. Normal speech. Imaging Last Impressions Knee X-Ray 10/19/17 1123 Signed Impressions: Service Date/Time: Thursday, October 19, 2017 12:04 - CONCLUSION: Expected changes following recent left total knee arthroplasty, as above. Chano Cavazos MD Assessment and Plan Assessment and Plan Status post left total knee arthroplasty 10/19/17. - Management per orthopedic surgery. - continue current postop care with pain management and bowel regimen. - PT consult to treat and eval. - Anticoagulation per ortho. - Incentive spirometry. Arthritis Hereditary. The patient is supposed to start a new medication but is unsure when to start it in relation to surgery. - Advised the patient to contact her rheumatology office to ask about the start date and dosage following surgery. Hypertension Well-controlled. - Continue home regimen. - Vasotec as needed. Hypothyroidism Secondary to thyroidectomy. - Resume Synthroid DVT prophylaxis: Per orthopedic surgery Discussed Condition With Patient Manuel Wise DO Oct 19, 2017 18:12
[2017-10-19] MEDS: valACYclovir HCL 500 MG TAB PO SCH (19:18)
[2017-10-19 20:20] VITALS: BP 98/56; PULSE 64; RESP 18; TEMP 96.7; O2SAT 97
[2017-10-20 01:22] VITALS: BP 97/55; PULSE 64; RESP 18; TEMP 97.3; O2SAT 94
[2017-10-20] MEDS: ACETAMINOPHEN/HYDROcodone 325 MG/5 MG TAB PO PRN ×3 (02:19→11:35)
[2017-10-20 04:28] LABS: HEMATOCRIT 31.3 % (35.0-46.0); HEMOGLOBIN 10.2 GM/DL (11.6-15.3); MEAN CELL VOLUME 94.9 FL (80.0-100.0); MEAN CORPUSCULAR HGB CONC 32.6 % (32.0-36.0); MEAN PLATELET VOLUME 7.2 FL (7.0-11.0); PLATELET COUNT 294 TH/MM3 (150-450); RED CELL DISTRIBUTION WIDTH 12.9 % (11.6-17.2); WHITE BLOOD COUNT 12.7 TH/MM3 (4.0-11.0)
[2017-10-20 04:43] VITALS: BP 99/52; PULSE 60; RESP 18; TEMP 97; O2SAT 93
[2017-10-20 04:52] LABS: CALCIUM 8.7 MG/DL (8.5-10.1); CREATININE 0.95 MG/DL (0.50-1.00)
[2017-10-20] MEDS ORDERED: LEVOTHYROXINE SODIUM 25 MCG TAB PO SCH (06:00)
[2017-10-20] MEDS ORDERED: LEVOTHYROXINE SODIUM 112 MCG TAB PO SCH (06:00)
[2017-10-20] MEDS ORDERED: DEXAMETHASONE SOD PHOS 20 MG/5 ML VIAL IV ONE (07:45)
[2017-10-20 07:50] VITALS: BP 90/52; PULSE 71; RESP 18; TEMP 97.1; O2SAT 95
[2017-10-20] MEDS ORDERED: MONTELUKAST SODIUM 10 MG TAB PO SCH (09:00)
[2017-10-20] MEDS ORDERED: TOLTERODINE TARTRATE 4 MG CAP LA PO SCH (09:00)
[2017-10-20] MEDS ORDERED: PANTOPRAZOLE SOD 20 MG DELAYED RELEASE TAB PO SCH (09:00)
[2017-10-20] MEDS ORDERED: LISINOPRIL 10 MG TAB PO SCH (09:00)
[2017-10-20] MEDS ORDERED: FLUTICASONE PROPIONATE 50 MCG/ACT 16 GM NASAL SPRAY EACH NARE SCH (09:00)
[2017-10-20] MEDS ORDERED: DULoxetine HCl DR 60 MG CAP PO SCH (09:00)
[2017-10-20] MEDS: valACYclovir HCL 500 MG TAB PO SCH (09:16)
[2017-10-20] MEDS ORDERED: ENOXAPARIN SODIUM 40 MG/0.4 ML SYRINGE SQ SCH (11:00)
[2017-10-20 11:35] VITALS: BP 112/57; PULSE 64; RESP 18; TEMP 97.4; O2SAT 96
--- NOTE | 2017-10-20 12:55 | PD.ORT.PN ---
Subjective Post Op Day #: 1 Subjective Remarks Patient is OOB in chair with minimal pain to the left knee. Patient has been ambulatory and states she is ready for discharge home with home health. Objective Vitals Vital Signs Date Time Temp Pulse Resp B/P (MAP) Pulse Ox O2 Delivery O2 Flow Rate FiO2 10/20/17 11:35 97.4 64 18 112/57 (75) 96 10/20/17 07:50 97.1 71 18 90/52 (65) 95 10/20/17 04:43 97.0 60 18 99/52 (68) 93 10/20/17 01:22 97.3 64 18 97/55 (69) 94 10/19/17 20:20 96.7 64 18 98/56 (70) 97 10/19/17 15:45 97.4 68 18 121/68 (85) 96 10/19/17 15:00 97.7 64 15 110/56 (74) 98 Nasal Cannula 2 10/19/17 14:00 69 17 144/68 (93) 96 Nasal Cannula 3 10/19/17 13:00 70 18 143/68 (93) 96 Nasal Cannula 3 I/O 10/19/17 10/19/17 10/19/17 10/20/17 10/20/17 10/20/17 07:00 15:00 23:00 07:00 15:00 23:00 Intake Total 1109 ml 448 ml 100 ml 600 ml Output Total 400 ml Balance 709 ml 448 ml 100 ml 600 ml Intake Oral 600 ml IV Total 1109 ml 448 ml 100 ml Output Urine Total 200 ml Estimated Blood Loss 200 ml # Voids 3 4 3 Result Diagram: 10/20/17 0348 10/20/17 0348 Procedures Left TKA Objective Remarks The patient's dressing is C/D/I. EHL/TA/G intact. 2+ pedal pulse. Calf is soft and nontender. + SILT. Assessment & Plan Ortho Post Op Day #: 1 Problem List: Assessment and Plan POD #1: Left TKA 1. WBAT LLE 2. Lovenox followed by ASA for DVT prophylaxis 3. Ice to the left knee PRN 4. Stable for discharge home with home health today 5. F/U in the office with Dr. Sosa and MILO Porras as previously scheduled. Fly Licea Oct 20, 2017 12:55
--- NOTE | 2017-10-20 18:15 | HHI.DS ---
Discharge Summary Admission Date Oct 19, 2017 at 08:18 Discharge Date: Oct 20, 2017 Admitting Diagnosis Primary localized OA, lower leg Status post total knee replacement, left Diagnosis: (1) Primary localized osteoarthrosis, lower leg Diagnosis: Principal ICD Codes: M17.10 - Unilateral primary osteoarthritis, unspecified knee Status: Acute (2) Status post total knee replacement, left Diagnosis: Principal ICD Codes: Z96.652 - Presence of left artificial knee joint Procedures Left TKA Brief History This is a 62 year old female patient with severe OA of the left knee CBC/BMP: 10/20/17 0348 10/20/17 0348 Significant Findings Laboratory Tests Test 10/20/17 03:48 White Blood Count 12.7 TH/MM3 (4.0-11.0) Red Blood Count 3.30 MIL/MM3 (4.00-5.30) Hemoglobin 10.2 GM/DL (11.6-15.3) Hematocrit 31.3 % (35.0-46.0) Random Glucose 134 MG/DL (74-106) Estimat Glomerular Filtration Rate 60 ML/MIN (>89) PE at Discharge The patient's dressing is C/D/I. EHL/TA/G intact. 2+ pedal pulse. Calf is soft and nontender. + SILT. Hospital Course The patient was admitted to the hospital for severe OA of the left knee to have a left TKA. The patient's surgery went well without complication. The patient is WBAT. The patient is on Lovenox followed by ASA for DVT prophylaxis. The patient is on a regular diet. The patient was discharged home with home health and will f/u in the office with Dr. Sosa or MILO Porras as previously scheduled. Pt Condition on Discharge: Stable Discharge Disposition: Disch w/ Home Health Serv Discharge Instructions Diet Instructions: As Tolerated, No Restrictions Activities You Can Perform: Weight Bearing as Keila Activities to Avoid: Strenuous Activity Follow up Referrals: Orthopedics with Massimo Sosa MD New Medications: Commode 3-in-1 (Commode 3-in-1) 1 Mis Mis EA .XX DIRECTED, #1 0 Refills CPM-Continuous Passive Motion Machine (CPM-Continuous Passive Motion Machine) 1 Ea Device EA .XX DIRECTED, #1 0 Refills Walker with Front Wheels (Walker with Front Wheels) 1 Mis Mis EA .XX DIRECTED, #1 0 Refills Continued Medications: Duloxetine DR (Duloxetine DR) 60 Mg Capdr 60 MG PO DAILY, #30 CAP 0 Refills Glucosamine (Glucosamine) 1,000 Mg Cap 2000 MG PO DAILY for Herbal Supplements, CAP 0 Refills Hydrochlorothiazide (Hydrochlorothiazide) 25 Mg Tab 25 MG PO EVERY OTHER DAY, #30 TAB 0 Refills Levothyroxine (Levothyroxine) 137 Mcg Tab 137 MCG PO DAILY for Thyroid, #30 TAB 0 Refills Lisinopril (Lisinopril) 10 Mg Tab 10 MG PO DAILY, #30 TAB 0 Refills Mometasone Nasal [place] (Mometasone Nasal [place]) 50 Mcg/Act [place] 2 SPRAY EACH NARE DAILY for Allergy Management, #1 BOTTLE 0 Refills Montelukast (Montelukast) 10 Mg Tab 10 MG PO DAILY, #30 TAB 0 Refills Omeprazole (Omeprazole) 20 Mg Tab 20 MG PO DAILY, #30 TAB 0 Refills Solifenacin (Vesicare) 10 Mg Tab 10 MG PO DAILY for Urinary Symptom Managemen, #30 TAB 0 Refills Sucralfate (Sucralfate) 1 Gm Tab 1 GM PO TID PRN for REFLUX, #90 TAB 0 Refills on empty stomach Valacyclovir (Valtrex) 1,000 Mg Tab 1000 MG PO BID for Mgmt Viral Infection, #60 TAB 0 Refills Discontinued Medications: Aspirin (Aspirin EC) 81 Mg Tabdr 81 MG PO DAILY, TAB 0 Refills Ibuprofen (Ibuprofen) 800 Mg Tab 800 MG PO Q6HR PRN for PAIN, #40 TAB 0 Refills Meloxicam (Mobic) 15 Mg Tab 15 MG PO DAILY, TAB 0 Refills Fly Licea Oct 20, 2017 18:15
[2017-10-20] MEDS ORDERED: DOCUSATE SODIUM 100 MG CAP PO SCH (21:00)
[2017-10-20] MEDS ORDERED: MULTIVITAMINS/MINERALS THERAPEUTIC TAB PO SCH (21:00)
[2017-10-21] MEDS ORDERED: HYDROCHLOROTHIAZIDE 25 MG TAB PO SCH (09:00)
== END 2017-10-20 13:06 | disposition home health service (06) | DRG 470 ==
LOC: HSDI 08:18 → N06A 15:45
PROVIDERS: ADMIT Orthopaedic Surgery; ATTEND Orthopaedic Surgery
PROC: 3E0T3BZ Introduction of Anesthetic Agent into Peripheral Nerves and Plexi, Percutaneous Approach (ICD-10-PCS; 2017-10-19)
PROC: 0SRD0J9 Replacement of Left Knee Joint with Synthetic Substitute, Cemented, Open Approach (ICD-10-PCS; principal; 2017-10-19 09:47)
DX: M17.12 Unilateral primary osteoarthritis, left knee (principal); I10 Essential (primary) hypertension; E78.5 Hyperlipidemia, unspecified; E89.0 Postprocedural hypothyroidism; K21.9 Gastro-esophageal reflux disease without esophagitis; Z96.651 Presence of right artificial knee joint
CPT/HCPCS: 73560; 80048; 85027; 86850; 86900; 86901; 93005; 94150; C1776; J0131; J0690; J0735; J1100; J1580; J1650; J1885; J2175; J2250; J2270; J2795; J3010; J3370; J7030; J7120; L1830